=== PATIENT | female | born 1980 | race Caucasian/White ===

== ENCOUNTER 2023-10-03 00:50 | Emergency (ER) | payer BC ==
[~2023-10-03] VITALS: Ht 170.2 cm; Wt 81.7 kg
[~2023-10-03 00:50] MED LIST: OXYACE5T PO; SULTRIDS PO
[2023-10-03 01:22] VITALS: BP 125/78
[2023-10-03] MEDS ORDERED: TOBRADEX ST EYE5 M1 LEFTEYE ×2 (02:49→13:09)
== END 2023-10-03 03:13 | disposition home or self-care (01) ==
LOC: ER 00:50
DX: S05.02XA Injury of conjunctiva and corneal abrasion without foreign body, left eye, initial encounter (principal); X58.XXXA Exposure to other specified factors, initial encounter; Z88.0 Allergy status to penicillin; Z91.048 Other nonmedicinal substance allergy status; Z79.899 Other long term (current) drug therapy
CPT/HCPCS: 99283; A9270